=== PATIENT | male | born 1945 | race Caucasian/White ===

== ENCOUNTER 2024-07-20 05:57 | Day surgery (SDC) | payer MEDICARE ==
[2024-07-19 13:59] VITALS: BMI 28.7
[2024-07-20] MEDS ORDERED: PROPOFOL 60 ML ONE (07:08)
[2024-07-20] MEDS ORDERED: ePHEDrine Sulfate 50 MG/10 ML VIAL ONE (07:19)
[2024-07-20] MEDS ORDERED: Midazolam HCl 2 mg/2 ml Vial ONE ×3 (07:38→08:19)
[2024-07-20] MEDS ORDERED: Etomidate 40 MG (20 mL) VIAL ONE (07:51)
== END 2024-07-20 08:51 | disposition home or self-care (01) ==
LOC: SDC 05:57
PROVIDERS: ATTEND Internal Medicine Gastroenterology
PROC: 0DBL8ZZ Excision of Transverse Colon, Via Natural or Artificial Opening Endoscopic (ICD-10-PCS; principal; 2024-07-20)
DX: Z12.11 Encounter for screening for malignant neoplasm of colon (principal); K63.5 Polyp of colon; K57.30 Diverticulosis of large intestine without perforation or abscess without bleeding; I12.9 Hypertensive chronic kidney disease with stage 1 through stage 4 chronic kidney disease, or unspecified chronic kidney disease; N18.9 Chronic kidney disease, unspecified; Z98.49 Cataract extraction status, unspecified eye; Z95.0 Presence of cardiac pacemaker; Z95.818 Presence of other cardiac implants and grafts; Z79.899 Other long term (current) drug therapy; Z98.890 Other specified postprocedural states
CPT/HCPCS: 45385; J2250; J2704; 88305

== ENCOUNTER 2025-08-28 10:48 | Outpatient (CLI) | payer MEDICARE ==
[2025-08-28 12:36] LABS: ALT (SGPT) 22 U/L (Less than 45); AST (SGOT) 22 U/L (11-34); Albumin 3.8 g/dL (3.1-4.5); Alkaline Phosphatase 43 U/L (40-110); Anion Gap 12 mmol/L (10-20); BUN (Urea Nitrogen) 20 mg/dL (8.4-25.7); Bilirubin, Total 0.8 mg/dL (0.3-1.2); Calc. Creatinine Clearance 0 mL/min (70-130); Calcium 10.0 mg/dL (7.8-10.44); Carbon Dioxide 28 mmol/L (23-31); Chloride 104 mmol/L (98-107); Globulin 3.5 g/dL (2.4-3.5); Glucose 101 mg/dL (83-110); Potassium 4.7 mmol/L (3.5-5.1); Sodium 139 mmol/L (136-145)
[2025-08-28 12:38] LABS: #Basophils 0.04 10x3/uL (0.0-0.2); #Eosinophils 0.38 10x3/uL (0.0-0.7); #Monocytes 0.45 10x3/uL (0.11-0.59); #Neutrophils 6.09 10x3/uL (1.40-6.50); %Basophils 0.5 % (0.0-1.0); %Eosinophils 4.7 % (0.0-10.0); %Lymphocytes 14.3 % (21.0-51.0); %Monocytes 5.5 % (0.0-10.0); %Neutrophils 74.8 % (42.0-75.0); Hematocrit 38.1 % (42.0-52.0); Hemoglobin 12.6 g/dL (14.0-18.0); Mean Corpuscular Hemoglobin 29.1 pg (27.0-31.0); Mean Corpuscular Volume 88.0 fL (78.0-98.0); Platelet Count 139 10x3/uL (130-400); Red Blood Cell (RBC) Count 4.33 mill/uL (4.70-6.10); White Blood Cell (WBC) Count 8.14 10x3/uL (4.8-10.8)
== END 2025-08-28 10:49 | disposition home or self-care (01) ==
LOC: LABBT 10:48
PROVIDERS: ATTEND Internal Medicine Cardiovascular Disease
DX: Z01.818 Encounter for other preprocedural examination (principal); R94.39 Abnormal result of other cardiovascular function study
CPT/HCPCS: 80053; 85025; 93005; 93010

== ENCOUNTER 2025-09-01 05:43 | Day surgery (SDC) | payer MEDICARE ==
[2025-08-28 11:05] VITALS: BMI 28.8
[2025-09-01] MEDS ORDERED: Nitroglycerin 50 MG/250 ML BOT 0 ML ONE (07:11)
[2025-09-01] MEDS ORDERED: Lidocaine 1% (PF) 30 ML VIAL ONE (07:11)
[2025-09-01] MEDS ORDERED: EPINEPHrine 1 MG/10 ML Abboject SYRINGE ONE (07:11)
[2025-09-01] MEDS ORDERED: Heparin 10,000 UNITS/ 10 ML VIAL ONE (07:11)
[2025-09-01] MEDS ORDERED: PHENYLEPHRINE-NS 100 MCG/ML 10 ML SYRINGE ONE (07:11)
[2025-09-01] MEDS ORDERED: TICAGRELOR 90 MG TABLET ONE (10:29)
[2025-09-01] MEDS ORDERED: Aspirin 325 MG TAB ONE (10:32)
[2025-09-01] MEDS ORDERED: CEFAZOLIN 2 GM VIAL ONE (10:44)
[2025-09-01] MEDS ORDERED: Iopamidol 370 76% 100 ML VIAL ONE (10:55)
[2025-09-01] MEDS ORDERED: hydrALAZINE 20 MG/ML VIAL ONE (13:23)
== END 2025-09-01 17:32 | disposition home or self-care (01) ==
LOC: SDC 05:43
PROVIDERS: ATTEND Internal Medicine Cardiovascular Disease
PROC: 027035Z Dilation of Coronary Artery, One Artery with Two Drug-eluting Intraluminal Devices, Percutaneous Approach (ICD-10-PCS; principal; 2025-09-01)
DX: I25.10 Atherosclerotic heart disease of native coronary artery without angina pectoris (principal); I35.0 Nonrheumatic aortic (valve) stenosis
CPT/HCPCS: 85347 ×2; 93005; 93460; C1751; C1769 ×5; C1874; C1887 ×2; C1894 ×3; C9600; G0278; J0360; J1644; J2003; J2250; J3010; 92928; 93567; 99152; 99153; J0165; J0461